=== PATIENT | female | born 1960 | race Caucasian/White ===

== ENCOUNTER 2020-02-09 06:16 | Day surgery (SDC) | payer BC ==
[2020-02-09] MEDS ORDERED: Sodium Chloride 0.9% 1,000 ML IV SCH (07:00)
[2020-02-09] MEDS ORDERED: fentaNYL 100 MCG/2 ML SDV ONE (07:17)
[2020-02-09] MEDS ORDERED: Midazolam 1 MG/ML 2 ML SDV ONE (07:17)
[2020-02-09] MEDS ORDERED: Propofol 200 MG/20 ML SDV ONE (07:18)
[2020-02-09 09:35] VITALS: BP 102/57; PULSE 57
--- NOTE | 2020-02-09 15:20 | OR ---
DATE OF PROCEDURE: 02/09/2020 SURGEON: Seymour Paredes MD PROCEDURE: Colonoscopy. FINDINGS: Normal colonoscopy, except for a few small diverticula. COMPLICATION: None. PATTERN MARKING SUPERVISOR: None. ANESTHESIA: MAC. PREOPERATIVE DIAGNOSIS: Family history of colorectal cancer. POSTOPERATIVE DIAGNOSIS: Family history of colorectal cancer. RISKS: Risks, benefits, alternatives, and limitations including, but not limited to infection, bleeding, and perforation were explained to the patient, who wished to proceed. We also discussed false positives and false negatives. PROCEDURE IN DETAIL: The patient was placed left lateral decubitus position. Digital rectal exam was performed without abnormality. Scope was introduced and advanced atraumatically to the ileocecal valve. The scope was brought back to the ascending, transverse, descending colon, and retroflexed. No evidence of old or new blood. No masses. No polyps. The prep was acceptable. Approximately 90% luminal surface could be seen. No abnormalities on retroflexion. The patient had a few small diverticula located in the sigmoid colon. No other abnormalities noted. Greater than 8 minutes was spent removing the scope. The patient tolerated the procedure well. Seymour Paredes MD /[id number]
== END 2020-02-09 09:58 | disposition home or self-care (01) ==
LOC: JP.SDS 06:16
PROVIDERS: ATTEND Surgery
DX: Z12.11 Encounter for screening for malignant neoplasm of colon (principal); K57.30 Diverticulosis of large intestine without perforation or abscess without bleeding; Z80.0 Family history of malignant neoplasm of digestive organs; Z91.048 Other nonmedicinal substance allergy status
CPT/HCPCS: 45378; J2250; J2704; J3010; J7030